=== PATIENT | female | born 2000 | race Hispanic/Latino ===

== ENCOUNTER 2021-08-20 13:07 | Emergency (ER) | payer OTHER, SELFPAY ==
[2021-08-20] MEDS ORDERED: LIDOCAINE 1% MPF 5 ML VIAL ONE (14:12)
--- NOTE | 2021-08-20 14:22 | RAD REPORT ---
EXAM DESCRIPTION: RAD - Forearm Right - 08/20/2021 2:02 pm CLINICAL HISTORY: laceration COMPARISON: No comparisons FINDINGS: No acute fracture. No malalignment. No significant focal degenerative changes. IMPRESSION: No acute osseous abnormality involving the right elbow.
[2021-08-20] MEDS ORDERED: TETANUS & DIPHTHERIA TOX,ADULT 0.5 ML VIAL ONE (14:34)
--- NOTE | 2021-08-20 14:38 | EDPHYS ---
Physician Documentation [facility] Name: Katherine Enamorado Age: 20 yrs Sex: Female : 2000 Arrival Date: 08/20/2021 Time: 13:09 Bed 12 Private MD: ED Physician Edson Guaman HPI: 08/20 14:05 This 20 yrs old Female presents to ER via Ambulatory with complaints of pm1 Laceration To Arm. 14:05 The patient has a laceration occurred at home. The laceration(s) is(are) located on the pm1 dorsal aspect of right forearm. Onset: The symptoms/episode began/occurred just prior to arrival. Associated signs and symptoms: The patient has no apparent associated signs or symptoms, Pertinent negatives: deformity, heavy bleeding, numbness distal to injury, suspected foreign body. The patient has not experienced similar symptoms in the past. The patient has not recently seen a physician. Patient was practicing on a stripper pole, and the pole fell down and her arm went a glass closet door. Historical: - Allergies: 13:20 No Known Allergies; ss - Home Meds: 13:20 None [Active]; ss - PMHx: 13:20 None; ss - PSHx: 13:20 None; ss - Immunization history:: Client reports having NOT received the Covid vaccine. Last tetanus immunization: unknown. - Social history:: Smoking status: Patient denies any tobacco usage or history of. ROS: 14:05 Constitutional: Negative for fever, chills, and weight loss, Cardiovascular: Negative pm1 for chest pain, palpitations, and edema, Respiratory: Negative for shortness of breath, cough, wheezing, and pleuritic chest pain, Abdomen/GI: Negative for abdominal pain, nausea, vomiting, diarrhea, and constipation. 14:05 Neuro: Negative for headache, weakness, numbness, tingling, and seizure. 14:05 MS/extremity: Positive for laceration, of the dorsal aspect of right forearm, Negative for decreased range of motion, deformity. 14:05 Skin: Positive for laceration(s), of the dorsal aspect of right forearm. 14:05 All other systems are negative. Exam: 14:05 Constitutional: This is a well developed, well nourished patient who is awake, alert, pm1 and in no acute distress. Head/Face: Normocephalic, atraumatic. 14:05 Cardiovascular: Exam negative for acute changes, Rate: normal, Rhythm: regular, Pulses: no pulse deficits are appreciated. 14:05 Respiratory: Exam negative for acute changes, respiratory distress, shortness of breath. 14:05 Skin: Appearance: normal except for affected area, injury, laceration(s), the wound is approximately 2 cm(s), of the dorsal aspect of right forearm, that can be described as clean, no foreign body, irregular, without bleeding. 14:05 Neuro: Exam negative for acute changes, Orientation: is normal, Mentation: is normal, Motor: is normal, moves all fours. Vital Signs: 13:20 Pulse 94; Resp 16; Temp 97.9(TE); Pulse Ox 100% on R/A; Weight 72.57 kg; Height 5 ft. 5 ss in. (165.10 cm); Pain 6/10; 13:22 BP 121 / 96; ss 13:20 Body Mass Index 26.63 (72.57 kg, 165.10 cm) ss Laceration: 14:35 Wound Repair of 3cm ( 1.2in ) subcutaneous laceration to dorsal aspect of right pm1 forearm. Irregularly shaped.. Distal neuro/vascular/tendon intact. Anesthesia: Local anesthetic administered with 3 mls of 1% lidocaine. Wound prep: Extensive cleansing with betadine with hibiclenz by me, Wound irrigation with saline by me, Wound explored extensively, Copious irrigation. Skin closed with 7 4-0 Prolene using simple sutures and sterile technique. Dressed with 4x4's, non-adherent dressing. Patient tolerated well. MDM: 13:21 Patient medically screened. pm1 14:35 Data reviewed: vital signs. Data interpreted: Pulse oximetry: on room air is 100 %. pm1 Interpretation: normal. Counseling: I had a detailed discussion with the patient and/or guardian regarding: the historical points, exam findings, and any diagnostic results supporting the discharge/admit diagnosis, radiology results, the need for outpatient follow up, a family practitioner, to return to the emergency department if symptoms worsen or persist or if there are any questions or concerns that arise at home. 08/20 13:21 Order name: Forearm Right XRAY; Complete Time: 14:35 pm1 08/20 13:21 Order name: Dressing - Wound; Complete Time: 14:18 pm1 08/20 13:21 Order name: Gloves, Sterile; Complete Time: 14:18 pm1 08/20 13:21 Order name: Prolene, Sutures; Complete Time: 14:18 pm1 08/20 13:21 Order name: Setup Suture Tray; Complete Time: 14:18 pm1 Administered Medications: 14:18 Drug: Lidocaine (1 %) 5 ml {Note: administered by LOTUS Louie.} Volume: 5 ml; Route: ss Infiltration; 14:30 Drug: Tetanus-Diphtheria Toxoid Adult 0.5 ml {Gm Mobile: TISSUELAB. Exp: ss 06/25/2023. Lot #: [id number]. } Route: IM; Site: left deltoid; 14:46 Follow up: Response: No adverse reaction ss Disposition Summary: 08/20/21 14:37 Discharge Ordered Location: Home pm1 Problem: new pm1 Symptoms: have improved pm1 Condition: Stable pm1 Diagnosis - Laceration without foreign body of right forearm pm1 Followup: pm1 - With: Emergency Department - When: As needed - Reason: Worsening of condition Followup: pm1 - With: Private Physician - When: 10 - 14 days - Reason: Staple/Suture removal, Re-evaluation by your physician Discharge Instructions: - Discharge Summary Sheet pm1 - Laceration Care, Adult pm1 Forms: - Medication Reconciliation Form pm1 - Thank You Letter pm1 - Antibiotic Education pm1 - Prescription Opioid Use pm1 Prescriptions: - Cephalexin 500 mg Oral Capsule - take 1 capsule by ORAL route every 8 hours for 10 days; 30 capsule; Refills: 0, pm1 Product Selection Permitted Signatures: Dispatcher [employer] Halley Alejandra RN RN Liban Andrews NP LICENSED THERAPIST pm1
--- NOTE | 2021-08-20 14:38 | ER ---
Nurse's Notes [facility] Name: Katherine Enamorado Age: 20 yrs Sex: Female : 2000 Arrival Date: 08/20/2021 Time: 13:09 Bed 12 Private MD: Diagnosis: Laceration without foreign body of right forearm Presentation: 08/20 13:18 Chief complaint: Patient states: Laceration to R forearm. Pt reports she fell off of a ss pole onto glass door and the door broke. Pt reports that injury occurred 2-3 hours ago. Coronavirus screen: Client denies travel out of the [place] in the last 14 days. Ebola Screen: Patient denies exposure to infectious person. Patient denies travel to an Ebola-affected area in the 21 days before illness onset. Complicating Factors: There are no complicating factors for this patient. Initial Sepsis Screen: Does the patient meet any 2 criteria? No. Patient's initial sepsis screen is negative. Does the patient have a suspected source of infection? No. Patient's initial sepsis screen is negative. Risk Assessment: Do you want to hurt yourself or someone else? Patient reports no desire to harm self or others. Onset of symptoms was August 20, 2021. 13:18 Method Of Arrival: Ambulatory ss 13:18 Acuity: SALOME 4 ss Historical: - Allergies: 13:20 No Known Allergies; ss - Home Meds: 13:20 None [Active]; ss - PMHx: 13:20 None; ss - PSHx: 13:20 None; ss - Immunization history:: Client reports having NOT received the Covid vaccine. Last tetanus immunization: unknown. - Social history:: Smoking status: Patient denies any tobacco usage or history of. Screenin:19 Abuse screen: Denies threats or abuse. Denies injuries from another. Nutritional ss screening: No deficits noted. Tuberculosis screening: Never had TB. Fall Risk None identified. Assessment: 14:19 General: Appears in no apparent distress. comfortable, Behavior is calm, cooperative. ss Pain: Complains of pain in dorsal aspect of right forearm Pain currently is 6 out of 10 on a pain scale. Quality of pain is described as burning, tender. Neuro: Level of Consciousness is awake, alert, obeys commands, Oriented to person, place, time, situation. Cardiovascular: Capillary refill < 3 seconds is brisk in bilateral fingers. Respiratory: Airway is patent Respiratory effort is even, unlabored. Derm: Skin is intact, is healthy with good turgor, Skin is dry, Skin is pink, warm \T\ dry. normal. Musculoskeletal: Range of motion: intact in all extremities. 14:43 Reassessment: Patient appears in no apparent distress at this time. Patient and/or ss family updated on plan of care and expected duration. Pain level reassessed. Patient is alert, oriented x 3, equal unlabored respirations, skin warm/dry/pink. Vital Signs: 13:20 Pulse 94; Resp 16; Temp 97.9(TE); Pulse Ox 100% on R/A; Weight 72.57 kg; Height 5 ft. 5 ss in. (165.10 cm); Pain 6/10; 13:22 BP 121 / 96; ss 13:20 Body Mass Index 26.63 (72.57 kg, 165.10 cm) ss ED Course: 13:09 Patient arrived in ED. ds1 13:17 Liban Caceres NP is PHCP. pm1 13:17 Edson Guaman MD is Attending Physician. pm1 13:20 Triage completed. ss 13:20 Arm band placed on right wrist. ss 14:04 Forearm Right XRAY In Process Unspecified. EDMS 14:11 Halley Taveras, TANIKA is Primary Nurse. ss 14:19 Patient has correct armband on for positive identification. Bed in low position. Call ss light in reach. 14:43 Assist provider with laceration repair on dorsal aspect of right forearm that was ss between 2.6 to 7.5 cm using sutures. Set up tray. Performed by Liban Caceres RETAIL VISUAL MERCHANDISER Dressed with 4X4s, Maxim, Neosporin, Patient tolerated well. Patient did not have IV access during this emergency room visit. Administered Medications: 14:18 Drug: Lidocaine (1 %) 5 ml {Note: administered by LOTUS Louie.} Volume: 5 ml; Route: ss Infiltration; 14:30 Drug: Tetanus-Diphtheria Toxoid Adult 0.5 ml {Marketing Database Analyst: CISSOID. Exp: ss 06/25/2023. Lot #: [id number]. } Route: IM; Site: left deltoid; 14:46 Follow up: Response: No adverse reaction Outcome: 14:37 Discharge ordered by . pm1 14:43 Discharged to home ambulatory. ss 14:43 Condition: good 14:43 Discharge instructions given to Instructed on discharge instructions, follow up and referral plans. medication usage, Demonstrated understanding of instructions, follow-up care, medications, Prescriptions given X 1. 14:46 Patient left the ED. ss Signatures: Dispatcher [employer] EDAK MontoyaLuciai ds1 Halley Taveras RN RN Liban Caceres, RETAIL VISUAL MERCHANDISER RETAIL VISUAL MERCHANDISER pm1
[2021-08-20 17:15] VITALS: TEMP 97.9; O2SAT 100
[2021-08-20 17:16] VITALS: BP 121/96
== END 2021-08-20 14:46 | disposition home or self-care (01) ==
LOC: ER 13:07
PROC: 0JQG0ZZ Repair Right Lower Arm Subcutaneous Tissue and Fascia, Open Approach (ICD-10-PCS; principal; 2021-08-20)
DX: S51.811A Laceration without foreign body of right forearm, initial encounter (principal); W25.XXXA Contact with sharp glass, initial encounter; Z23 Encounter for immunization
CPT/HCPCS: 90471; 90714; 99284

== ENCOUNTER 2021-08-31 12:16 | Emergency (ER) | payer SELFPAY ==
--- NOTE | 2021-08-31 13:58 | EDPHYS ---
Physician Documentation [facility] Name: Katherine Enamorado Age: 20 yrs Sex: Female : 2000 Arrival Date: 08/31/2021 Time: 12:18 Bed Waiting Private MD: ED Physician Sunday Cazares HPI: 08/31 13:55 This 20 yrs old Female presents to ER via Ambulatory with complaints of Suture jmm Removal. 12:39 Sutures placed in the right forearm 2 weeks ago. Denies fever, diacharge pain. . jmm 13:55 This is a 20-year-old female the presents emerged department after laceration repair jmm which was performed 2 weeks ago. Denies any fever, chills, purulent drainage.. HARP MAKER: 13:52 LMP 08/14/2021 ap3 Historical: - Allergies: 13:50 No Known Allergies; ap3 - Home Meds: 13:50 None [Active]; ap3 - PMHx: 13:50 None; ap3 - PSHx: 13:50 None; ap3 - Immunization history:: Client reports having NOT received the Covid vaccine. - Social history:: Smoking status: Patient denies any tobacco usage or history of. ROS: 13:55 Constitutional: Negative for fever, chills, and weight loss, Cardiovascular: Negative jmm for chest pain, palpitations, and edema, Respiratory: Negative for shortness of breath, cough, wheezing, and pleuritic chest pain. 13:55 Skin: Positive for laceration(s). 13:55 All other systems are negative. Exam: 13:55 Constitutional: This is a well developed, well nourished patient who is awake, alert, jmm and in no acute distress. Head/Face: atraumatic. Eyes: EOMI, no conjunctival erythema appreciated ENT: Moist Mucus Membranes Neck: Trachea midline, Supple Chest/axilla: Normal chest wall appearance and motion. Cardiovascular: Regular rate and rhythm. No edema appreciated Respiratory: Normal respirations, no respiratory distress appreciated Abdomen/GI: Non distended, soft Back: Normal ROM 13:55 Skin: Healing laceration noted to the right forearm. 13:55 Neuro: Orientation: is normal, Mentation: is normal, Memory: is normal. 13:55 Psych: Behavior/mood is pleasant, cooperative. Vital Signs: 13:49 BP 129 / 94; Pulse 83; Temp 97.6; Pulse Ox 100% ; Weight 72.57 kg; Height 5 ft. 5 in. ap3 (165.10 cm); 13:49 Body Mass Index 26.63 (72.57 kg, 165.10 cm) ap3 Procedures: 13:57 Suture/Staple removal: Removed 7 sutures, from right arm, site appears well healed, jmm dressed with steri strips. Patient tolerated well. MDM: 12:38 Patient medically screened. jmm 13:57 Data reviewed: vital signs, nurses notes. Counseling: I had a detailed discussion with jm the patient and/or guardian regarding: the historical points, exam findings, and any diagnostic results supporting the discharge/admit diagnosis, the need for outpatient follow up, to return to the emergency department if symptoms worsen or persist or if there are any questions or concerns that arise at home. Administered Medications: No medications were administered Disposition: 16:09 Co-signature as Attending Physician, Sunday Cazares DO I was immediately available on-site ms3 in the Emergency Department for consultation in the care of the patient.. Disposition Summary: 08/31/21 13:58 Discharge Ordered Location: Home [facility] Condition: Stable [facility] Diagnosis - Encounter for removal of sutures [facility] Followup: [facility] - With: Private Physician - When: As needed - Reason: Recheck today's complaints, Continuance of care, Re-evaluation by your physician Discharge Instructions: - Discharge Summary Sheet [facility] - Suture Removal, Care After [facility] Forms: - Medication Reconciliation Form [facility] - Thank You Letter [facility] - Antibiotic Education [facility] - Prescription Opioid Use [facility] Signatures: João Lundy PA PA jmm Prokisch, Amanda, RN RN ap3 Sunday Cazares DO DO ms3
--- NOTE | 2021-08-31 13:58 | ER ---
Nurse's Notes [facility] Name: Katherine Enamorado Age: 20 yrs Sex: Female : 2000 Arrival Date: 08/31/2021 Time: 12:18 Bed Waiting Private MD: Diagnosis: Encounter for removal of sutures Presentation: 08/31 13:49 Chief complaint: Patient states: patient states she received sutures here in this ED ap3 approx 2 weeks ago. patient states she has 7 sutures. Coronavirus screen: At this time, the client does not indicate any symptoms associated with coronavirus-19. Ebola Screen: No symptoms or risks identified at this time. Initial Sepsis Screen: Does the patient meet any 2 criteria? No. Patient's initial sepsis screen is negative. Does the patient have a suspected source of infection? No. Patient's initial sepsis screen is negative. Risk Assessment: Do you want to hurt yourself or someone else? Patient reports no desire to harm self or others. Onset of symptoms was August 17, 2021. 13:49 Method Of Arrival: Ambulatory ap3 13:49 Acuity: SALOME 4 ap3 Triage Assessment: 13:51 General: Appears in no apparent distress. comfortable, Behavior is calm, cooperative, ap3 appropriate for age. Pain: Denies pain. Neuro: Level of Consciousness is awake, alert, obeys commands, Oriented to person, place, time, situation, Gait is steady. Derm: Wound noted dorsal aspect of right forearm. ASSISTANT HAIRSTYLIST: 13:52 LMP 08/14/2021 ap3 Historical: - Allergies: 13:50 No Known Allergies; ap3 - Home Meds: 13:50 None [Active]; ap3 - PMHx: 13:50 None; ap3 - PSHx: 13:50 None; ap3 - Immunization history:: Client reports having NOT received the Covid vaccine. - Social history:: Smoking status: Patient denies any tobacco usage or history of. Screenin:53 Abuse screen: Denies threats or abuse. Nutritional screening: No deficits noted. ap3 Tuberculosis screening: No symptoms or risk factors identified. Fall Risk None identified. Assessment: 14:05 Reassessment: See triage assessment. ap3 Vital Signs: 13:49 BP 129 / 94; Pulse 83; Temp 97.6; Pulse Ox 100% ; Weight 72.57 kg; Height 5 ft. 5 in. ap3 (165.10 cm); 13:49 Body Mass Index 26.63 (72.57 kg, 165.10 cm) ap3 ED Course: 12:18 Patient arrived in ED. as 12:46 João Lundy PA is PHCP. marcus 12:46 Sunday Cazares DO is Attending Physician. jm 13:50 Triage completed. ap3 13:53 Arm band placed on left wrist. ap3 13:53 Patient has correct armband on for positive identification. Pulse ox on. NIBP on. ap3 13:53 No provider procedures requiring assistance completed. Patient did not have IV access ap3 during this emergency room visit. Administered Medications: No medications were administered Medication: 13:53 VIS not applicable for this client. ap3 Outcome: 13:58 Discharge ordered by . jm 14:05 Discharged to home ambulatory. ap3 14:05 Condition: stable 14:05 Discharge instructions given to patient, Instructed on discharge instructions, follow up and referral plans. Demonstrated understanding of instructions, follow-up care. 14:06 Patient left the ED. ap3 Signatures: João Lundy PA PA jmm Martinez, Amelia as Prokisch, Amanda, RN RN ap3
[2021-08-31 14:55] VITALS: BP 129/94; TEMP 97.6; O2SAT 100
== END 2021-08-31 14:06 | disposition home or self-care (01) ==
LOC: ER 12:16
DX: Z48.02 Encounter for removal of sutures (principal)
CPT/HCPCS: 99282